=== PATIENT | male | born 1930 | race Caucasian/White ===

== ENCOUNTER → 2019-08-18 11:02 | Outpatient (CLI) | payer MEDICARE, OTHER ==
[2016-02-27 08:56] VITALS: BMI 25.1
[~2019-08-18 11:02] MED LIST: FLOMAX0.4 MG PO; HYDROCODONE-APA1 TAB PO; ZOCOR20 MG PO
== END | disposition home or self-care (01) ==
LOC: D.LABREF 11:02
PROVIDERS: ATTEND Orthopaedic Surgery
DX: M17.11 Unilateral primary osteoarthritis, right knee (principal)

== ENCOUNTER 2019-08-22 17:10 | Inpatient (IN) | payer MEDICARE, OTHER ==
[~2019-08-22] VITALS: Ht 177.8 cm; Wt 75.0 kg
[2019-09-07 12:12] LABS: APPEARANCE CLEAR (CLEAR); BASOPHILS 0.3 % (0-2); COLOR YELLOW (YELLOW); EOSINOPHILS 1.2 % (0-7); HEMATOCRIT 45.8 % (42.0-54.0); HEMOGLOBIN 15.3 g/dL (13.5-17.5); IMMATURE GRANULOCYTES 0.1 % (0-5); LYMPHOCYTES 21.2 % (15-50); MCH 29.4 pg (26.0-34.0); MCHC 33.4 g/dL (31.0-37.0); MCV 88.1 fL (80.0-100.0); MEAN PLATELET VOLUME 10.4 fL (7.4-10.4); MONOCYTES 6.4 % (2-11); NEUTROPHILS 70.8 % (40-80); PLATELET COUNT 183 10x3/uL (130-400); RDW 14.1 % (11.5-14.5); SPECIFIC GRAVITY 1.015 (1.005-1.020); WBC 6.7 10x3/uL (4.8-10.8)
[2019-09-07 12:13] LABS: BILIRUBIN NEGATIVE (NEGATIVE); GLUCOSE NEGATIVE (NEGATIVE); KETONE NEGATIVE (NEGATIVE); NITRITE NEGATIVE (NEGATIVE); PROTEIN NEGATIVE (NEGATIVE); UROBILINOGEN NORMAL (NORMAL)
[2019-09-07 12:17] LABS: CALC OSMOLALITY 281 mosm/kg (275-300); CALCIUM 9.4 mg/dL (8.5-10.1); CARBON DIOXIDE 31.7 mmol/L (21.0-32.0); CHLORIDE - SERUM 102 mmol/L (98-107); GLUCOSE 95 mg/dL (74-106); POTASSIUM - SERUM 4.1 mmol/L (3.5-5.1); SODIUM 140 mmol/L (136-145); UREA NITROGEN 21 mg/dL (7-18); eGFR NON AFRICAN AMERICAN 75 mL/min (90-120)
[2019-09-07 12:31] LABS: APTT 26.1 SECONDS (22.8-39.4)
[2019-09-07 12:34] LABS: INR 0.96 (0.85-1.17); PROTIME 12.3 SECONDS (11.6-15.0)
[2019-09-13] VITALS (10 sets, daily range): BP systolic 114–150; BP diastolic 46–68; Ht 177.8 cm; Wt 75.0 kg
[2019-09-13] MEDS ORDERED: MULTI-DAY VITAM1 TAB PO (07:44)
[2019-09-13] MEDS ORDERED: ASCORBIC ACID500 MG (07:45)
--- NOTE | 2019-09-13 10:57 | NUR ---
PLASMA BLADE SET TO 6/8 BOVIE PAD RIGHT THIGH [id number] EXP 12/30/20 RIGHT LEG PREPPED FROM UPPER THIGH TO TOES CIRCUMFERENTIALLY WITH HBICLENS AND ALCOHOL AND DRIED WITH A TOWEL. THEN PREPPED WITH CHLORAPREP. TOBRAMYCIN 1.2GM AND VANCOMYCIN 1GM APPLIED TO WOUND BED. WOUND IRRIGATED WITH BACTISURE. TRAFFIC MONITORED IN AND OUT OF ROOM AND KEPT TO A MINIMUM
--- NOTE | 2019-09-13 13:28 | NUR ---
SPOKE WITH DR MCCANN WHO STATES START CPM AFTER DINNER TONIGHT AT 50 FLEXION. INCREASE 5-10 TOLERATED Q DAY. EXTENSION AT ZERO.
--- NOTE | 2019-09-13 14:03 | NUR ---
PATIENT ADMITTED TO ROOM 2213. ADMISSION ASSESSMENT COMPLETE. SCD TO LEFT LEG. PLEXI BOOT TO RIGHT FOOT. ICE PLACED ON RIGHT KNEE. DRSG C/D/I. VITALS STABLE. EDUCATION PROVIDED ON USE OF INCENTIVE SPIROMETER. VERBALIZED UNDERSTANDING. FALL PRECAUTIONS IN PALCE. CALL ROBLERO AND PERSONAL ITEMS IN REACH. WILL CONTINUE TO MONITOR. FRIEND AT BEDSIDE.
--- NOTE | 2019-09-13 14:25 | NUR ---
RESTING IN BED. CALLED DIETARY FOR TRAY FOR PATIENT. PATIENT DENIES NEEDS. WILL CONTINUE TO MONITOR.
--- NOTE | 2019-09-13 15:13 | NUR ---
TAKEN OFF O2. SAT 97% ON ROOM AIR. SAT STAYED AT 97% AFTER WALKING WITH PT.
--- NOTE | 2019-09-13 18:40 | NUR ---
RESTING IN BED. DENIES PAIN. DENIES NEEDS. BED LOW. FALL PRECAUTIONS IN PLACE. CALL ROBLERO AND PERSONAL ITEMS IN REACH.
--- NOTE | 2019-09-13 19:25 | NUR ---
LYING IN BED. CPM IN USE. DENIES PAIN. DRSG NOTED WITH SABINO TO RT KNEE. SCD NOTED TO LLE. BRAYDEN NOTED TO RLE WITH PLEXI. 1/2 NS @ 50 ML/HR NOTED TO LT FOREARM WITHOUT DIFF. ALERT AND ORIENTED X4. USES URINAL. FRANCHESCA ALARM ON FOR PT SAFETY. SR ELEVATED X2. CL IN REACH.
--- NOTE | 2019-09-14 01:08 | NUR ---
LYING IN BED. NO C/O PAIN SO FAR. CL IN REACH. NO DISTRESS.
[2019-09-14 01:14] VITALS: BP 114/58
[2019-09-14 05:15] VITALS: BP 108/60
[2019-09-14 06:00] LABS: BASOPHILS 0.1 % (0-2); EOSINOPHILS 0 % (0-7); HEMATOCRIT 33.6 % (42.0-54.0); IMMATURE GRANULOCYTES 0.2 % (0-5); LYMPHOCYTES 8.7 % (15-50); MCH 28.4 pg (26.0-34.0); MCHC 32.7 g/dL (31.0-37.0); MCV 86.8 fL (80.0-100.0); MEAN PLATELET VOLUME 10.5 fL (7.4-10.4); MONOCYTES 7.1 % (2-11); NEUTROPHILS 83.9 % (40-80); PLATELET COUNT 184 10x3/uL (130-400); RBC 3.87 10x6/uL (4.20-6.10); RDW 14.3 % (11.5-14.5); WBC 8.5 10x3/uL (4.8-10.8)
--- NOTE | 2019-09-14 06:13 | NUR ---
HAS DONE WELL TONIGHT. DENIES PAIN. RESP EVEN AND NONLABORED. TALKATIVE WITH STAFF. CL IN REACH
[2019-09-14 06:23] LABS: ALBUMIN 3.1 g/dL (3.4-5.0); ANION GAP 9.9 mmol/L (8-16); BILIRUBIN - TOTAL 0.49 mg/dL (0.2-1.3); CARBON DIOXIDE 28.3 mmol/L (21.0-32.0); CREATININE - SERUM 1.1 mg/dL (0.6-1.3); POTASSIUM - SERUM 4.2 mmol/L (3.5-5.1); PROTEIN - SERUM 6.2 g/dL (6.4-8.2)
--- NOTE | 2019-09-14 07:35 | NUR ---
ALERT AND ORIENTED. LUNGS CLEAR BILATERLLY. HEART SOUNDS S1 AND S2 HEARD IN ALL NI. BOWEL SOUNDS ACTIVE X 4. DRSG TO RIGHT KNEE C/D/I. IV TO LFA PATENT WITHOUT REDNESS. DENIES PAIN. DENIES NEEDS. BED LOW. FALL PRECAUTIONS IN PLACE. CALL ROBLERO AND PERSONAL ITEMS IN REACH. WILL CONTINUE TO MONITOR.
[2019-09-14 09:04] VITALS: BP 146/47
--- NOTE | 2019-09-14 12:01 | NUR ---
ASSISTED TO BATHROOM AND BACK TO CHAIR WITH WALKER. DENIES FURTHER NEEDS.
[2019-09-14 12:46] VITALS: BP 129/46
--- NOTE | 2019-09-14 13:17 | NUR ---
PT REFUSING BED ALARM. STATES "IM TIRED OF THIS THING GOING OFF EVERYTIME I MOVE". PT EDUCATED ON USE OF FRANCHESCA ALARM AND FALL PRECAUTIONS. PT VERBALIZES UNDERSTANDING BUT STILL REFUSING FRANCHESCA AT THIS TIME. RELEASE OF RESPONSIBILITY SIGNED BY PATIENT AND PLACED IN PT CHART. PT DENIES FURTHER NEEDS. WILL NOTIFY SHIFT NURSE OF PT SIGNED REFUSAL PAPER.
--- NOTE | 2019-09-14 14:29 | MORECARE ---
CASE MANAGEMENT DISCHARGE SUMMARY PATIENT: MADI ACEVEDO UNIT: [id number] ADM DATE: 09/13/19 AGE: 89 : 32 SEX: M ROOM/BED: D.2213 AUTHOR: ARIELADOC PHYSICIAN: REFERRING PHYSICIAN: GRISELDA MCCANN DO DATE OF SERVICE: 09/14/19 Discharge Plan Patient Name: MADI ACEVEDO Facility: [facility]:[place] : 1930 Planned Disposition: Home with Home Health Anticipated Discharge Date: Discharge Date: Expected LOS: Initial Reviewer: [email or web address] Initial Review Date: 09/13/2019 Generated: 09/14/19 3:29 pm Comments DCP- Discharge Planning Updated by [email or web address]: Ami Gonzáles on 09/14/19 1:[address] Patient Name: MADI ACEVEDO Admission Status: Elective Accout number: [id number] Admission Date: 09-13-2019 : 1930 Admission Diagnosis: Attending: GRISELDA MCCANN Current LOS: 1 Anticipated DC Date: Planned Disposition: Home with Home Health Primary Insurance: MEDICARE A & B Discharge Planning Comments: CM met with patient to complete initial dc planning assessment. CM educated patient on the CM role and verbal consent given by patient to complete assessment. Patient lives at home alone where he is independent with his care. His girlfriends daughter will be staying with him the first week. At discharge patient plans to return home and feels this is a safe discharge. CM discussed availability of home health, rehab services, and medical equipment. He has all DME (walker, BSC, CPM & ice machine) that was set up by Dr Hutson office. He will need home health with PT JORDY signed for Care IV. Will fax clinical to them. Patient denied known discharge needs at this time. CM will continue to follow and will assist as needed with dc plans/needs. Bit Sander: Ami Gonzáles DCPIA - Discharge Planning Initial Assessment Updated by [email or web address]: Ami Gonzáles on 09/14/19 2:20 pm * Is the patient Alert and Oriented? Yes * How many steps to enter\exit or inside your home? STAIRS * PCP CHRIS * [facility] * Preadmission Environment Home Alone * ADLs Independent * Equipment Bedside Commode Rolling Walker Walker * Other Equipment CPM & ICE MACHINE * List name and contact numbers for known caregivers / representatives who currently or will assist patient after discharge: SUREKHA HARMAN (FRIEND) [phone] * Verbal permission to speak to the caregivers and representatives has been obtained from the patient. N/A * Community resources currently utilized None * Additional services required to return to the preadmission environment? Yes * Can the patient safely return to the preadmission environment? Yes * Has this patient been hospitalized within the prior 30 days at any hospital? No Patient Name: MADI ACEVEDO Page [id number] at 1429 All edits/amendments must be made on the electronic document DICTATION DATE: 09/14/191427 MARINE ERECTOR: ROCAEL 09/14/191427 RPT#: [id number] DC DATE: STATUS: ADM IN [facility] [address] [place] [address] END OF REPORT
--- NOTE | 2019-09-14 14:57 | MORECARE ---
CASE MANAGEMENT DISCHARGE SUMMARY PATIENT: MADI ACEVEDO UNIT: [id number] ADM DATE: 09/13/19 AGE: 89 : 32 SEX: M ROOM/BED: D.2213 AUTHOR: ARIELADOC PHYSICIAN: REFERRING PHYSICIAN: GRISELDA MCCANN DO DATE OF SERVICE: 09/14/19 Discharge Plan Patient Name: MADI ACEVEDO Facility: [facility]:[place] : 1930 Planned Disposition: Home with Home Health Anticipated Discharge Date: Discharge Date: Expected LOS: Initial Reviewer: [email or web address] Initial Review Date: 09/13/2019 Generated: 09/14/19 3:56 pm Comments DCP- Discharge Planning Updated by [email or web address]: Ami Gonzáles on 09/14/19 1:[address] Patient Name: MADI ACEVEDO Admission Status: Elective Accout number: [id number] Admission Date: 09-13-2019 : 1930 Admission Diagnosis: Attending: GRISELDA MCCANN Current LOS: 1 Anticipated DC Date: Planned Disposition: Home with Home Health Primary Insurance: MEDICARE A & B Discharge Planning Comments: CM met with patient to complete initial dc planning assessment. CM educated patient on the CM role and verbal consent given by patient to complete assessment. Patient lives at home alone where he is independent with his care. His girlfriends daughter will be staying with him the first week. At discharge patient plans to return home and feels this is a safe discharge. CM discussed availability of home health, rehab services, and medical equipment. He has all DME (walker, BSC, CPM & ice machine) that was set up by Dr Hutson office. He will need home health with PT JORDY signed for Care IV. Will fax clinical to them. Patient denied known discharge needs at this time. CM will continue to follow and will assist as needed with dc plans/needs. Diplomatic Interpreter/Translator: Ami Gonzáles DCPIA - Discharge Planning Initial Assessment Updated by [email or web address]: Ami Gonzáles on 09/14/19 2:20 pm * Is the patient Alert and Oriented? Yes * How many steps to enter\exit or inside your home? STAIRS * PCP CHRIS * [facility] * Preadmission Environment Home Alone * ADLs Independent * Equipment Bedside Commode Rolling Walker Walker * Other Equipment CPM & ICE MACHINE * List name and contact numbers for known caregivers / representatives who currently or will assist patient after discharge: SUREKHA HARMAN (FRIEND) [phone] * Verbal permission to speak to the caregivers and representatives has been obtained from the patient. N/A * Community resources currently utilized None * Additional services required to return to the preadmission environment? Yes * Can the patient safely return to the preadmission environment? Yes * Has this patient been hospitalized within the prior 30 days at any hospital? No External Providers External Provider: [facility] Next Contact Date: Service Request Date: Service Type: Resolution: Reviewer: Comments: Last DP export: 09/14/19 1:29 Patient Name: MADI ACEVEDO Page [phone] at 1457 All edits/amendments must be made on the electronic document DICTATION DATE: 09/14/191455 FRONT DESK AUXILIARY: ROCAEL 09/14/191455 RPT#: [id number] DC DATE: STATUS: ADM IN [address] [place] [address] END OF REPORT
--- NOTE | 2019-09-14 15:09 | NUR ---
SITTING IN CHAIR AT BEDSIDE. WAITING TO SPEAK WITH DR MCCANN. DENIES NEEDS. WILL CONTINUE TO MONITOR.
[2019-09-14] MEDS ORDERED: ELIQUIS2.5 MG PO (16:59)
[2019-09-14] MEDS ORDERED: HYDROCODONE-A1 UDTA2 PO (16:59)
[2019-09-14] MEDS ORDERED: KEFLEX500 MG PO (16:59)
--- NOTE | 2019-09-14 17:47 | NUR ---
PATIENT IV THERAPY REMOVED FROM LEFT FOREARM WITH TIP INTACT. DRESSING CHANGED. TOLERATED WELL. MINIMAL BLEEDING. DISCHARGE INSTRUCTIONS GIVEN. AND PATIENT AND VERBALIZED UNDERSTANDING. WILL WHEEL DOWN.
--- NOTE | 2019-09-15 13:18 | MORECARE ---
CASE MANAGEMENT DISCHARGE SUMMARY PATIENT: MADI ACEVEDO UNIT: [id number] ADM DATE: 09/13/19 AGE: 89 : 32 SEX: M ROOM/BED: D.2213 AUTHOR: ARIELADOC PHYSICIAN: REFERRING PHYSICIAN: GRISELDA MCCANN DO DATE OF SERVICE: 09/15/19 Discharge Plan Patient Name: MADI ACEVEDO Facility: [facility]:[place] : 1930 Planned Disposition: Home with Home Health Anticipated Discharge Date: Discharge Date: 09/14/2019 Expected LOS: 0 Initial Reviewer: [email or web address] Initial Review Date: 09/13/2019 Generated: 09/15/19 2:17 pm Comments DCP- Discharge Planning Updated by [email or web address]: Ami Gonzáles on 09/14/19 1:[address] Patient Name: MADI ACEVEDO Admission Status: Elective Accout number: [id number] Admission Date: 09-13-2019 : 1930 Admission Diagnosis: Attending: GRISELDA MCCANN Current LOS: 1 Anticipated DC Date: Planned Disposition: Home with Home Health Primary Insurance: MEDICARE A & B Discharge Planning Comments: CM met with patient to complete initial dc planning assessment. CM educated patient on the CM role and verbal consent given by patient to complete assessment. Patient lives at home alone where he is independent with his care. His girlfriends daughter will be staying with him the first week. At discharge patient plans to return home and feels this is a safe discharge. CM discussed availability of home health, rehab services, and medical equipment. He has all DME (walker, BSC, CPM & ice machine) that was set up by Dr Hutson office. He will need home health with PT JORDY signed for Care IV. Will fax clinical to them. Patient denied known discharge needs at this time. CM will continue to follow and will assist as needed with dc plans/needs. Garbage Truck Dispatcher: Ami Gonzáles DCPIA - Discharge Planning Initial Assessment Updated by [email or web address]: Ami Gonázles on 09/14/19 2:20 pm * Is the patient Alert and Oriented? Yes * How many steps to enter\exit or inside your home? STAIRS * PCP CHRIS * [facility] * Preadmission Environment Home Alone * ADLs Independent * Equipment Bedside Commode Rolling Walker Walker * Other Equipment CPM & ICE MACHINE * List name and contact numbers for known caregivers / representatives who currently or will assist patient after discharge: SUREKHA HARMAN (FRIEND) [phone] * Verbal permission to speak to the caregivers and representatives has been obtained from the patient. N/A * Community resources currently utilized None * Additional services required to return to the preadmission environment? Yes * Can the patient safely return to the preadmission environment? Yes * Has this patient been hospitalized within the prior 30 days at any hospital? No Last DP export: 09/14/19 1:57 Patient Name: MADI ACEVEDO Page 51312 at 1318 All edits/amendments must be made on the electronic document DICTATION DATE: 09/15/191316 HELP DESK CONSULTANT: ROCAEL 09/15/191316 RPT#: [id number] DC DATE:09/14/19 STATUS: DIS IN [facility] [address] [place] [address] END OF REPORT
--- NOTE | 2019-10-25 07:00 | OP ---
PATIENT NAME: MADI AMIN MEDICAL RECORD: [id number] :[birth year] LOCATION:D.MS [id number] ADMISSION DATE:09/13/19 SURGEON: JOHN MCCANN DO DATE OF OPERATION: 09/13/2019 PROCEDURE PERFORMED: Right total knee arthroplasty. PREOPERATIVE DIAGNOSIS: Right knee osteoarthritis. POSTOPERATIVE DIAGNOSIS: Right knee osteoarthritis. INDICATIONS: Mr. Amin is an 89-year-old male who has tried all manner of nonoperative treatment for his knee arthritis including several rounds of injections, physical therapy and he has gotten to the point where he is tired of it affecting his activities of daily living. He is aware of the risks including infection, bleeding, damage to nerves and vessels, need for further surgery, continued pain, loss of motion, failed implant fracture, and even and he signed a consent. SURGEON: John Mccann DO SPECIAL EDUCATION AIDE: Jona Cade, advanced nurse practitioner. DESCRIPTION OF PROCEDURE: The patient was given a block by anesthesia in the preoperative area. He was taken to the operating suite, laid in supine position, given gentamicin and 2 grams of Ancef, sedated and LMA was placed. The right lower extremity was then prepped and draped in sterile fashion. Timeout was performed. Everyone was in agreement as to the correct side, site, patient, and procedure. The incision was then marked out with a marker and then covered in Ioban. A 10-blade scalpel was used to make an incision down to the capsule. A fresh 10-blade was then used to do a medial parapatellar approach to the knee. The bleeding was coagulated with Aquamantys. He was also given a gram of TXA prior to starting. We then everted the patella. Some of the fat pad was removed and the patella was milled down to fit a prosthesis, measured to be 34. Knee was then flexed up and the intramedullary canal was entered and the distal femur cutting block was put in and a pin and distal femur was cut. The proximal tibia was then cut as well and then the knee was brought to extension. The excess bone and menisci were removed and any bleeding was coagulated with Aquamantys at that time. Then, the extension block fit well. The 10 did, it was very tight and the knee was then flexed up. The femur was measured to be 72.5, a 4-in-1 cutting block was then put on and the femur was cut. The trial was put in place and the tibia was floated in and ranged. Then, rotation was then marked. The patella was drilled at that time for the patella implant and then the lug holes on the femur as well. The tibia was then exposed and measured to be a 79. This was drilled and punched and extra holes put in the tibia for cement preparation. The tibia was then irrigated. Cement was placed on the tibia and on the tibial implant and the implant was packed into place. Excess cement was removed. This was repeated twice and then the femur was impacted on. Once the femur was then placed in good position, a 10 poly was placed in between them. The knee was brought to extension and then the excess cement was removed off the tibia at that time. The patella was then cemented on and squeezed and held into place with the squeezer. The Bactisure was then used to irrigate in the knee 1 liter and then 3 liters of normal saline. At that time, the cement had dried and the 10 poly was noted to fit very well, it was very stable in extension and flexion and had good range of motion. A 10 E-poly OPERATIVE REPORT [id number] MADI AMIN anterior stabilized bearing was then put in and locked into place with the locking mechanism. The knee was then held in extension in the upper quadrant that had been cut. It was closed with #2 Ethibond in swahqp-gl-ozfdw fashion and the knee was flexed and the rest of the capsule was closed with #2-0 Ethibond in [id number]-[id number]-[id number] fashion. The skin was then closed with 2-0 Vicryl in inverted interrupted fashion and ZipLine, Adaptic, 4 x 4s, ABD, Webril, Trung wrap were then placed on the knee and Joaquin hose stocking was placed up to the knee by Semaj Cade APRN. The patient was awakened and taken to recovery in stable condition. BLOOD LOSS: 250 mL. COMPLICATIONS: None. TRANSINT:[id number] Voice Confirmation ID: [id number] DOCUMENT ID: [id number] 10/24/2019 Edited for trish Tijerina. JOHN MCCANN DO at 0700 CC: [id number] DICTATION DATE: 09/13/19 1208 CONSIGNEE: 09/13/19 1227 DIS IN 09/14/19 [facility] [address] [place]
== END 2019-09-14 18:09 | disposition home health service (06) | DRG 470 ==
LOC: D.MS 09-13 06:48 → D.SDCHOLD 09-13 06:48 → D.MS 09-13 13:07
PROVIDERS: Family Medicine; ADMIT Orthopaedic Surgery; ATTEND Orthopaedic Surgery
PROC: 0SRC0J9 Replacement of Right Knee Joint with Synthetic Substitute, Cemented, Open Approach (ICD-10-PCS; principal; 2019-09-13 09:00)
DX: M17.11 Unilateral primary osteoarthritis, right knee (principal); D62 Acute posthemorrhagic anemia; Z85.828 Personal history of other malignant neoplasm of skin; Z87.891 Personal history of nicotine dependence